=== PATIENT | male | born 1955 | race Caucasian/White ===

== ENCOUNTER 2018-05-14 02:21 | Outpatient (CLI) | payer MEDICAID, SELFPAY ==
[2018-05-14 09:45] LABS: ALT 71 U/L (12-78); AST 34 U/L (15-37); Alkaline Phosphatase 70 U/L (46-116); Anion Gap 9.8 mmol/L (3-11); BUN 20 mg/dL (7-18); Bilirubin, Total 1.4 mg/dL (0.2-1.0); CO2 28.2 mmol/L (21.0-32.0); CREATININE 0.67 mg/dL (0.70-1.30); Calcium 8.5 mg/dL (8.5-10.1); Chloride 102 mmol/L (98-107); Cholesterol 135 mg/dL (50-200); Glucose 113 mg/dL (70-100); HDL Cholesterol 30 mg/dL (40-60); LDL CHOLESTEROL 76 mg/dL (<100); Potassium 3.9 mmol/L (3.5-5.1); Sodium 140 mmol/L (136-145); Triglyceride 335 mg/dL (30-150)
== END 2018-05-14 02:41 ==
PROVIDERS: PCP Nurse Practitioner; Visit Provider Nurse Practitioner
DX: I10 Essential (primary) hypertension (principal); E78.1 Pure hyperglyceridemia; E66.9 Obesity, unspecified
CPT/HCPCS: 36415; 80053; 80061; 83721

== ENCOUNTER 2021-01-11 02:38 | Outpatient (CLI) | payer MEDICAID, SELFPAY ==
[2021-01-11 07:21] LABS: HCT 45.5 % (40.0-50.0); HGB 15.6 g/dL (13.5-17.5); MCH 30.1 pg (27.0-33.0); MCHC 34.3 % (32.0-36.0); MCV 87.7 fL (80-95); MPV 9.6 fL (8.0-11.0); Platelet Count 192 10^3/uL (130-400); RBC 5.19 10^6/uL (4.36-5.78); RDW 12.8 % (11.8-14.1); WBC 6.58 10^3/uL (4.4-10.8)
[2021-01-11 08:20] LABS: Hemoglobin A1C 5.8 % (<5.7)
== END 2021-01-11 02:39 | disposition home or self-care (01) ==
LOC: LBO 02:38
PROVIDERS: PCP Nurse Practitioner; Visit Provider Nurse Practitioner
DX: R73.01 Impaired fasting glucose (principal); I10 Essential (primary) hypertension; E78.6 Lipoprotein deficiency; E66.9 Obesity, unspecified
CPT/HCPCS: 36415; 80053; 80061; 85027; 83036

== ENCOUNTER 2022-01-17 04:17 | Outpatient (CLI) | payer MEDICAID, SELFPAY ==
[2022-01-17 07:22] LABS: Abs Immature Grans 0.07 10^3/uL (0.0-0.06); Absolute Basophil Count 0.01 10^3/uL (0.0-0.2); Absolute Lymphocyte Count 1.42 10^3/uL (1.2-3.4); Absolute Monocyte Count 0.52 10^3/uL (0.1-0.8); Absolute Neutrophil Count 3.18 10^3/uL (1.2-6.7); Basophils % 0.2; HCT 44.2 % (40.0-50.0); Immature Grans % 1.3; Lymphocytes % 27.3; MCH 30.4 pg (27.0-33.0); MCHC 33.9 % (32.0-36.0); MCV 90 fL (80-95); MPV 9.3 fL (8.0-11.0); Neutrophils % 61.2; Platelet Count 185 10^3/uL (130-400); RBC 4.94 10^6/uL (4.36-5.78); RDW-SD 42.2 fL
[2022-01-17 07:33] LABS: Hemoglobin A1C 5.9 % (<5.7)
[2022-01-17 09:37] LABS: ALT 56 U/L (16-63); AST 31 U/L (15-37); Albumin 4.1 g/dL (3.4-5.0); Alkaline Phosphatase 79 U/L (46-116); Anion Gap 9.5 mmol/L (3-11); BUN 19 mg/dL (7-18); Bilirubin, Total 1.4 mg/dL (0.2-1.0); CO2 28.5 mmol/L (21.0-32.0); CREATININE 0.7 mg/dL (0.70-1.30); Chloride 101 mmol/L (98-107); Cholesterol 140 mg/dL (<200); Glucose 122 mg/dL (74-106); HDL Cholesterol 29 mg/dL (40-60); Potassium 4.1 mmol/L (3.5-5.1); Sodium 139 mmol/L (136-145); Triglyceride 406 mg/dL (<150)
[2022-01-17 09:51] LABS: LDL CHOLESTEROL 61 mg/dL (<100)
[2022-01-18 09:34] LABS: Hepatitis C Ab w Rflx HCV PCR Negative (Negative)
== END 2022-01-17 04:18 | disposition home or self-care (01) ==
LOC: LBO 04:17
PROVIDERS: PCP Nurse Practitioner; Visit Provider Nurse Practitioner
DX: I10 Essential (primary) hypertension (principal); E78.5 Hyperlipidemia, unspecified; R73.09 Other abnormal glucose; J45.909 Unspecified asthma, uncomplicated; E66.9 Obesity, unspecified; Z11.59 Encounter for screening for other viral diseases
CPT/HCPCS: 36415; 80053; 80061; 83721; 86803; 83036; 85025

== ENCOUNTER 2024-05-29 01:47 | Outpatient (CLI) | payer MEDICARE, SELFPAY ==
--- OUTSIDE RECORDS SUMMARY | 2024-05-29 01:48 | XMS_ITS | Clinical Summary ---
Author Organization [facility] Address [address] [place] [id number] Care Team Providers Care Scientific Illustrator Name Role Phone Unavailable Primary Care Provider Unavailabl e Social History Tobacco Use Types Packs/Day Years Used Date Smoking Tobacco: Never Assessed Sex and Gender Information Value Date Recorded Sex Assigned at Not on file Gender Identity Not on file Sexual Orientation Not on file Plan of Treatment Health Maintenance Due Date Last Done Comments RSV Immunization ( o r 60+ Years) (1 - 1-dose 60+ series) 2017 Fall Risk Screening 2022 COVID-19 Vaccine ( season) 2023 Hepatitis C Screen Completed 01/17/2022 Procedures Procedure Name Priority Date/Time Associated Diagnosis Comments HEPATITIS C AB W REFLEX TO HCV RNA BY PCR Routine 01/17/2022 7:09 EDT from Last 3 Months or Most Recently Relevant to Health Maintenance Results * HEPATITIS C AB W REFLEX TO HCV RNA BY PCR (01/17/2022 7:09 EDT) Hep C Antibody Negative Negative 01/18/2022 9:29 EDT [facility] Blood VENOUS BLOOD / Unknown 01/17/2022 7:09 EDT 01/17/2022 17:47 EDT Provider Outr Resulting Lab CHEMISTRY & BLOOD GAS ORDERABLES [facility] [address] [place] [address] from Last 3 Months or Most Recently Relevant to Health Maintenance
--- OUTSIDE RECORDS SUMMARY | 2024-05-29 01:48 | XMS_ITS | Encounter Summary ---
Author Organization [facility] Address [address] [place] [address] Care Team Providers Care Toys Inspector Name Role Phone Unavailable Primary Care Provider Unavailabl e Encounter Details Date Type Department Care Team (Late st Contact Info) Description 01/17/2022 Lab Requisition [facility] Pathology & Laboratory Medicine - [facility] [address] [place] [address] Outr Resulting Lab, Provider Social History Tobacco Use Types Packs/Day Years Used Date Smoking Tobacco: Never Assessed Sex and Gender Information Value Date Recorded Sex Assigned at Not on file Gender Identity Not on file Sexual Orientation Not on file documented as of this encounter Plan of Treatment Not on file documented as of this encounter Procedures Procedure Name Priority Date/Time Associated Diagnosis Comments HEPATITIS C AB W REFLEX TO HCV RNA BY PCR Routine 01/17/2022 7:09 EDT documented in this encounter Results * HEPATITIS C AB W REFLEX TO HCV RNA BY PCR (01/17/2022 7:09 EDT) Hep C Antibody Negative Negative 01/18/2022 9:29 EDT [facility] Blood VENOUS BLOOD / Unknown 01/17/2022 7:09 EDT 01/17/2022 17:47 EDT Provider Outr Resulting Lab CHEMISTRY & BLOOD GAS ORDERABLES [facility] [address] [place] [address] documented in this encounter Visit Diagnoses Not on filedocumented in this encounter
--- OUTSIDE RECORDS SUMMARY | 2024-05-29 01:48 | XMS_ITS | Referral Summary ---
Author Organization [facility] Address [address] [place] [id number] Care Team Providers Care Cake Wrapper Name Role Phone Unavailable Primary Care Provider Unavailabl e Social History Tobacco Use Types Packs/Day Years Used Date Smoking Tobacco: Never Assessed Sex and Gender Information Value Date Recorded Sex Assigned at Not on file Gender Identity Not on file Sexual Orientation Not on file Plan of Treatment Not on file Procedures Procedure Name Priority Date/Time Associated Diagnosis Comments HEPATITIS C AB W REFLEX TO HCV RNA BY PCR Routine 01/17/2022 7:09 EDT from Last 3 Months or Most Recently Relevant to Health Maintenance Results * HEPATITIS C AB W REFLEX TO HCV RNA BY PCR (01/17/2022 7:09 EDT) Hep C Antibody Negative Negative 01/18/2022 9:29 EDT [facility] Blood VENOUS BLOOD / Unknown 01/17/2022 7:09 EDT 01/17/2022 17:47 EDT Provider Outr Resulting Lab CHEMISTRY & BLOOD GAS ORDERABLES [facility] [address] [place] [address] from Last 3 Months or Most Recently Relevant to Health Maintenance
[2024-05-29 07:53] LABS: ALT 48 U/L (16-63); AST 26 U/L (15-37); Albumin 3.9 g/dL (3.4-5.0); Alkaline Phosphatase 89 U/L (46-116); Anion Gap 8.4 mmol/L (3-11); BUN 15 mg/dL (7-18); Bilirubin, Total 1.22 mg/dL (0.2-1.0); CO2 30.6 mmol/L (21.0-32.0); CREATININE 0.7 mg/dL (0.70-1.30); Calcium 9.8 mg/dL (8.5-10.1); Chloride 98 mmol/L (98-107); Cholesterol 142 mg/dL (<200); Estimated GFR 101.62 (mL/min/1.73m2); Glucose 134 mg/dL (74-106); HDL Cholesterol 35 mg/dL (40-60); Potassium 3.8 mmol/L (3.5-5.1); Sodium 137 mmol/L (136-145); Total Protein 7.8 g/dL (6.4-8.2); Triglyceride 498 mg/dL (<150)
[2024-05-29 07:58] LABS: Hemoglobin A1C 6.1 % (<5.7)
[2024-05-29 08:05] LABS: LDL CHOLESTEROL 56 mg/dL (<100)
[2024-05-29 22:39] LABS: PSA, Screening 3.3 ng/mL (<=4.5)
== END 2024-05-29 01:48 | disposition home or self-care (01) ==
LOC: LBO 01:47
PROVIDERS: PCP Nurse Practitioner; Referring Provider Nurse Practitioner; Visit Provider Nurse Practitioner
DX: R73.03 Prediabetes (principal); E66.9 Obesity, unspecified; E78.1 Pure hyperglyceridemia; I10 Essential (primary) hypertension; Z12.5 Encounter for screening for malignant neoplasm of prostate
CPT/HCPCS: 36415; 80053; 80061; 83721; 84153; 83036

== ENCOUNTER 2025-06-10 05:23 | Outpatient (CLI) | payer MEDICARE, SELFPAY ==
[2025-06-10 07:34] LABS: Abs Immature Grans 0.06 10^3/uL (0.0-0.06); HCT 45.2 % (40.0-50.0); HGB 15.3 g/dL (13.5-17.5); Immature Grans % 1.0 %; MCH 29.3 pg (27.0-33.0); MCHC 33.8 % (32.0-36.0); MCV 87 fL (80-95); MPV 9.2 fL (8.0-11.0); Platelet Count 177 10^3/uL (130-400); RBC 5.22 10^6/uL (4.36-5.78); RDW 13.0 % (11.8-14.1); RDW-SD 40.4 fL; WBC 5.94 10^3/uL (4.4-10.8)
[2025-06-10 07:37] LABS: Glucose Negative (Negative)
[2025-06-10 08:31] LABS: ALT 45 U/L (16-63); AST 30 U/L (15-37); Albumin 4.2 g/dL (3.4-5.0); Alkaline Phosphatase 85 U/L (46-116); Anion Gap 11.4 mmol/L (3-11); BUN 20 mg/dL (7-18); Bilirubin, Total 1.8 mg/dL (0.2-1.0); CO2 27.6 mmol/L (21.0-32.0); Calcium 9.6 mg/dL (8.5-10.1); Chloride 99 mmol/L (98-107); Estimated GFR 100.99 (mL/min/1.73m2); Glucose 146 mg/dL (74-106); Potassium 4.0 mmol/L (3.5-5.1); Sodium 138 mmol/L (136-145); Total Protein 7.7 g/dL (6.4-8.2)
[2025-06-10 08:58] LABS: Cholesterol 147 mg/dL (<200); HDL Cholesterol 30 mg/dL (>or=40); Triglyceride 544 mg/dL (<150)
[2025-06-10 09:09] LABS: LDL CHOLESTEROL 56 mg/dL (<100)
[2025-06-10 10:20] LABS: Hemoglobin A1C 6.4 % (<5.7)
[2025-06-10 18:30] LABS: PSA, Screening 3.6 ng/mL (<=4.5)
== END 2025-06-10 05:24 | disposition home or self-care (01) ==
LOC: LBO 05:23
PROVIDERS: PCP Nurse Practitioner; Referring Provider Family Medicine; Visit Provider Family Medicine
DX: R73.03 Prediabetes (principal); Z13.9 Encounter for screening, unspecified; I10 Essential (primary) hypertension; E78.1 Pure hyperglyceridemia; Z12.5 Encounter for screening for malignant neoplasm of prostate
CPT/HCPCS: 36415; 80053; 80061; 83721; 84153; 81003; 83036; 85025